=== PATIENT | male | born 1985 | race Caucasian/White ===

== ENCOUNTER → 2018-08-01 | Outpatient (CLI) | payer BC | LOC: GMAE 11:49 | PROVIDERS: ATTEND Family Medicine | DX: R00.2 Palpitations (principal) ==

== ENCOUNTER → 2018-08-02 | Outpatient (CLI) | payer BC | LOC: RESP 12:45 | PROVIDERS: ATTEND Family Medicine | DX: R00.2 Palpitations (principal) ==